=== PATIENT | male | born 1965 | race Caucasian/White ===

== ENCOUNTER → 2018-02-27 | Outpatient (CLI) | payer OTHER | END | disposition home or self-care (01) | LOC: KCIC MRI 16:36 | DX: M67.432 Ganglion, left wrist (principal); M25.432 Effusion, left wrist; R60.0 Localized edema | CPT/HCPCS: 73221 ==

== ENCOUNTER → 2020-09-30 | Outpatient (CLI) | payer OTHER ==
[2020-09-30 15:12] LABS: BASO % 1 % (0-3); EOS # 0.1 x10^3/uL (0.0-0.7); EOS % 1 % (0-3); HEMOGLOBIN 13.4 g/dL (13.0-17.5); LYMPH # 1.5 x10^3/uL (1.0-4.8); LYMPH % 39 % (24-48); MEAN CORPUSCULAR HEMOGLOBIN 38 pg (25-35); MEAN CORPUSCULAR HGB CONC 35 g/dL (31-37); MEAN CORPUSCULAR VOLUME 106 fL (79-100); MONO # 0.4 x10^3/uL (0.0-1.1); MONO % 11 % (0-9); NEUT # 1.8 x10^3/uL (1.8-7.7); NEUT % 47 % (31-73); PLATELET COUNT 84 x10^3/uL (140-400); RED BLOOD COUNT 3.58 x10^6/uL (4.30-5.70); RED CELL DISTRIBUTION WIDTH 14.3 % (11.5-14.5); WHITE BLOOD COUNT 3.7 x10^3/uL (4.0-11.0)
== END ==
LOC: ONCLAB 14:47
PROVIDERS: ATTEND Internal Medicine Hematology & Oncology
DX: D69.6 Thrombocytopenia, unspecified (principal)
CPT/HCPCS: 36415; 82607; 82728; 82746; 83540; 83550; 85025

== ENCOUNTER 2021-04-10 20:43 | Emergency (ER) | payer OTHER ==
[~2021-04-10] VITALS: Ht 175.3 cm; Wt 95.4 kg
[2021-04-10] MEDS ORDERED: SULF1TAB24 PO ×2 (21:14→22:18)
[2021-04-10] MEDS ORDERED: PRED50TA PO ×2 (21:14→22:18)
[2021-04-10] MEDS ORDERED: FAMO20TA5 PO ×2 (21:14→22:18)
[2021-04-10] MEDS ORDERED: DIPH25TA64 PO ×2 (21:14→22:18)
--- NOTE | 2021-04-10 21:15 | PHYS DOC ---
Past Medical History Past Medical History: Hypothyroid, Other Additional Past Medical Histor: gout (ELISE MEDELLIN Sen [employer]) Past Surgical History: No Surgical History (ELISE MEDELLIN [employer]) Smoking Status: Never Smoker Additional Information: Chew tobacco Alcohol Use: Occasionally (ELISE MEDELLIN [employer]) General Adult EDM: Chief Complaint: INSECT BITE HPI: HPI: Patient is a 56 year old male who presents to the ED today complaining of a spider bite to the right ring finger that occurred today. Patient did not see the spider. He states he was putting some caps on his deck when something bit him. (ELISE MEDELLIN [employer]) Review of Systems: Review of Systems: Constitutional: Denies fever or chills. [] Musculoskeletal: Denies back pain or joint pain. [] Integument: Reports spider bite to the right ring finger Neurologic: Denies headache, focal weakness or sensory changes. [] Psychiatric: Denies depression or anxiety. [] (ELISE MEDELLIN [employer]) Heart Score: C/O Chest Pain: N/A Risk Factors: Risk Factors: DM, Current or recent (<one month) smoker, HTN, HLP, family history of CAD, obesity. Risk Scores: Score 0 - 3: 2.5% MACE over next 6 weeks - Discharge Home Score 4 - 6: 20.3% MACE over next 6 weeks - Admit for Clinical Observation Score 7 - 10: 72.7% MACE over next 6 weeks - Early Invasive Strategies (ELISE MEDELLIN Sen [employer]) Current Medications: Current Medications Medications (Trade) Dose Ordered Sig/Armani Start Time Stop Time Status Last Admin Dose Admin Cetirizine HCl (ZyrTEC) 10 mg 1X STAT 04/10/21 21:01 04/10/21 21:02 UNV Diphtheria/ Tetanus/Acell Pertussis (ADACEL TDap SYRINGE) 0.5 ml ONCE ONCE 04/10/21 21:15 04/10/21 21:16 UNV Famotidine (Pepcid) 20 mg 1X ONCE 04/10/21 21:15 04/10/21 21:16 UNV Prednisone (Prednisone) 60 mg 1X ONCE 04/10/21 21:15 04/10/21 21:16 UNV Trimethoprim/ Sulfamethoxazole (Bactrim Ds) 1 tab 1X ONCE 04/10/21 21:15 04/10/21 21:16 UNV (ELISE MEDELLIN [employer]) Physical Exam: PE: Constitutional: Well developed, well nourished, no acute distress, non-toxic appearance. [] Skin: Tip of the right ring finger with 2 puncture wounds. No infection. Redness noted to the tip of the finger, neurovascular exam is intact to the right ring finger. No necrosis. +2 right radial pulse. Cap refill less than 2 seconds the right ring finger Back: No tenderness, no CVA tenderness. [] Extremities: No tenderness, no cyanosis, no clubbing, ROM intact, no edema. [] Neurologic: Alert and oriented X 3, normal motor function, normal sensory function, no focal deficits noted. [] Psychologic: Affect normal, judgement normal, mood normal. [] (ELISE MEDELLIN APRN) Current Patient Data: Vital Signs: Vital Signs Date Time Temp Pulse Resp B/P (MAP) Pulse Ox O2 Delivery O2 Flow Rate FiO2 04/10/21 20:45 98.3 80 16 144/88 (106) 99 Room Air 98.3 (ELISE MEDELLIN APRN) EKG: EKG: [] (ELISE MEDELLIN APRN) Radiology/Procedures: Radiology/Procedures: [] (ELISE MEDELLIN APRN) Course & Med Decision Making: Course & Med Decision Making Pertinent Labs and Imaging studies reviewed. (See chart for details) This is a 56-year-old male patient presenting to the ED today with spider bite to the right ring finger though he never saw the spider bite him. This occurred a couple minutes prior to coming to the ED. Tetanus was updated. Discharged on Bactrim prednisone Pepcid and Benadryl. (ELISE MEDELLIN [employer]) Course & Med Decision Making Patients Care and treatment plan provided by ER Nurse Practitioner. I was available for consult. Patient's chart reviewed. (COURTNEY NEWMAN DO) Sasha Disclaimer: Sasha Disclaimer: This electronic medical record was generated, in whole or in part, using a voice recognition dictation system. (ELISE MEDELLIN APRN) Departure Departure Impression: Primary Impression: Insect bite Qualified Codes: S60.464A - Insect bite (nonvenomous) of right ring finger, initial encounter; W57.XXXA - Bitten or stung by nonvenomous insect and other nonvenomous arthropods, initial encounter Disposition: HOME / SELF CARE / HOMELESS Condition: STABLE Referrals: DANIAL CAM (PCP) Follow-up in 1 to 2 weeks Patient Instructions: Insect Bite, [id number] Additional Instructions: You have a bite to the right ring finger, keep the area clean and dry. Take the prescribed medications as ordered, follow-up with your doctor in a week, come back to the ED at any point symptoms worsen Scripts Sulfamethoxazole/Trimethoprim (BACTRIM DS TABLET) 1 Each Tablet 1 TAB PO BID for 10 Days, #20 TAB 0 Refills Prov: ELISE MEDELLIN APRN 04/10/21 Famotidine (FAMOTIDINE) 20 Mg Tablet 20 MG PO DAILY, #20 TAB Prov: ELISE MEDELLIN APRN 04/10/21 Prednisone (PREDNISONE) 50 Mg Tablet 1 TAB PO DAILY, #5 TAB Prov: ELISE MEDELLIN APRN 04/10/21 Diphenhydramine Hcl (BENADRYL ALLERGY) 25 Mg Tablet 1 TAB PO Q6HRS, #30 TAB 0 Refills Prov: ELISE MEDELLIN APRN 04/10/21 ELISE MEDELLIN APRN Apr 10, 2021 21:14 COURTNEY NEWMAN DO Apr 11, 2021 05:05
[2021-04-10] MEDS ORDERED: predniSONE 20 MG TABLET PO ONE (22:00)
[2021-04-10] MEDS ORDERED: SMZ/TMP 800/160MG TABLET. PO ONE (22:00)
[2021-04-10] MEDS ORDERED: DIPH,PERTUSS(ACELL),TET VAC/PF 0.5 ML SYRINGE. VAX IM ONE (22:00)
[2021-04-10] MEDS ORDERED: CETIRIZINE HCL 10 MG TABLET. PO ONE (22:00)
[2021-04-10] MEDS ORDERED: FAMOTIDINE 20 MG TABLET. PO ONE (22:00)
[2021-04-10] MEDS ORDERED: IBUPROFEN 200 MG TABLET. PO ONE (22:15)
[2021-04-10 22:17] VITALS: BP 131/83
[2021-04-10] MEDS ORDERED: IBUPROFEN 400 MG TABLET. PO ONE (22:30)
== END 2021-04-10 22:23 | disposition home or self-care (01) ==
LOC: ER 20:43
DX: S60.464A Insect bite (nonvenomous) of right ring finger, initial encounter (principal); E03.9 Hypothyroidism, unspecified; M10.9 Gout, unspecified; W57.XXXA Bitten or stung by nonvenomous insect and other nonvenomous arthropods, initial encounter; Y93.89 Activity, other specified; Y92.89 Other specified places as the place of occurrence of the external cause; Y99.8 Other external cause status
CPT/HCPCS: 90471; 90715; 99284; J7512

== ENCOUNTER → 2021-04-10 | Outpatient (CLI) | payer OTHER ==
[~2021-04-10] MED LIST: DIPH25TA64 PO; FAMO20TA5 PO; PRED50TA PO; SULF1TAB24 PO
[2021-04-10 12:58] LABS: BASO % 1 % (0-3); EOS # 0.1 x10^3/uL (0.0-0.7); EOS % 2 % (0-3); HEMATOCRIT 38.5 % (39.0-53.0); HEMOGLOBIN 13.2 g/dL (13.0-17.5); LYMPH # 1.6 x10^3/uL (1.0-4.8); LYMPH % 40 % (24-48); MEAN CORPUSCULAR HEMOGLOBIN 37 pg (25-35); MEAN CORPUSCULAR HGB CONC 34 g/dL (31-37); MEAN CORPUSCULAR VOLUME 107 fL (79-100); MONO # 0.5 x10^3/uL (0.0-1.1); MONO % 13 % (0-9); NEUT # 1.8 x10^3/uL (1.8-7.7); NEUT % 45 % (31-73); PLATELET COUNT 80 x10^3/uL (140-400); RED BLOOD COUNT 3.59 x10^6/uL (4.30-5.70); RED CELL DISTRIBUTION WIDTH 13.4 % (11.5-14.5); WHITE BLOOD COUNT 3.9 x10^3/uL (4.0-11.0)
== END ==
LOC: ONCLAB 12:20
PROVIDERS: ATTEND Internal Medicine Hematology & Oncology
DX: D69.6 Thrombocytopenia, unspecified (principal)
CPT/HCPCS: 36415; 85025